=== PATIENT | male | born 1990 | race African-American/Black ===

== ENCOUNTER 2020-01-12 17:11 | Outpatient (CLI) | payer MEDICAID, SELFPAY ==
--- NOTE | ~2020-01-12 | XR_ITS ---
EXAMINATION: XR chest 2V EXAM DATE: 01/12/2020 18:11 INDICATION: Prior chest x-ray showing spot on lung. TECHNIQUE: Frontal and lateral projections of the chest obtained and reviewed. There is no prior april dy for comparison. FINDINGS: The lungs are clear. There are no pleural effusions. The cardiomediastinal silhouette is within normal limits. There is no pneumothorax suspected. The bones and soft tissues are unremarkab le. IMPRESSION: Normal chest x-ray exam. Reviewed, dictated and finalized at location A. OCCUPATIONAL HEALTH IMPRESSION: Normal chest x-ray exam.
== END 2020-01-12 17:12 | disposition home or self-care (01) ==
PROVIDERS: Visit Provider Pediatrics
DX: R76.12 Nonspecific reaction to cell mediated immunity measurement of gamma interferon antigen response without active tuberculosis (principal)
CPT/HCPCS: 71046

== ENCOUNTER 2020-07-22 08:18 | Emergency (ER) | payer BC, SELFPAY ==
[2020-07-22 08:28] VITALS: BP 119/66; PULSE 47; RESP 18; TEMP 36.1; O2SAT 100
--- NOTE | 2020-07-22 09:20 | ED.SKABFB ---
HPI - Skin/Abscess/Foreign Bdy General Chief complaint: Skin/Abscess/Foreign Body Stated complaint: blister lower lip Time Seen by Provider: 07/22/20 08:45 Source: patient Mode of arrival: ambulatory Limitations: no limitations History of Present Illness HPI narrative: This patient is a 30 year old male who presents for evaluation of sores to his right lower lip. Patient states he noticed a sore to his right lower lip yesterday. He notices more swelling around wound today. He reports he has had these sores before when he lived in [place], but he has not sought medical care. He denies nausea, vomiting, fever, or chills. He denies dental issues. Related Data Allergies Allergy/AdvReac Type Severity Reaction Status Date / Time No Known Allergies Allergy Verified 07/22/20 09:54 Review of Systems Review of Systems: All systems reviewed & are unremarkable except as noted in HPI and below PMFSH Past Medical History Medical History (Updated 07/22/20 @ 09:54 by Carly Chisholm MD) Patient denies medical problems Surgical History Surgical History (Updated 07/22/20 @ 09:24 by Carly Chisholm MD) No pertinent past surgical history Social History Social History (Updated 07/22/20 @ 09:25 by Carly Chisholm MD) Smoking status: Current every day smoker Exam Const: General: no acute distress and alert Orientation/consciousness: patient oriented x3 HENMT: Face and sinus: face symmetric Mouth: Yes tongue normal and Yes moist mucous membranes Other: right lower lip at tori border with cluster dried vesicles, no significant lip swelling, no gum swelling or redness. No teeth tenderness Eyes: EOM: EOMs intact bilaterally Neck: Neck: no lymphadenopathy Chest: Chest palpation & inspection: normal inspection of the chest Resp: Effort & Inspection: normal respiratory effort Auscultation: clear to auscultation bilaterally Skin: General skin exam: normal color Rashes: no rashes Neuro: General: patient oriented x3 and moves all extremities Course Reevaluation(s) Date: 07/22/20 Time: 09:47 Vital Signs Vital signs: Vital Signs Temperature 97.0 F L 07/22/20 08:28 Pulse Rate 47 L 07/22/20 08:28 Respiratory Rate 18 07/22/20 08:28 Blood Pressure 119/66 07/22/20 08:28 Pulse Oximetry 100 07/22/20 08:28 Temperature 97.0 F L 07/22/20 08:28 Pulse Rate 47 L 07/22/20 08:28 Respiratory Rate 18 07/22/20 08:28 Blood Pressure 119/66 07/22/20 08:28 Pulse Oximetry 100 07/22/20 08:28 Discharge Plan Discharge Clinical Impression: Herpes labialis Patient Disposition: Home, Self-Care Condition: Stable Instructions: Antibiotic Form, Oral Herpes Simplex Virus Infections (ED) Prescriptions: New valacyclovir [Valtrex] 500 mg tablet 500 mg PO Q12H Qty: 6 RF: 0 mupirocin 2 % ointment 1 applic TOPICAL TID Qty: 15 RF: 0 Follow-up/Referrals: Manuel Yousif MD [Physician] - PHYSICIAN,[employer] [Primary Care Provider] - Discharge Date/Time: 07/22/20 10:17
== END 2020-07-22 10:17 | disposition home or self-care (01) ==
PROVIDERS: Emergency Provider General Practice
DX: B00.1 Herpesviral vesicular dermatitis (principal)
CPT/HCPCS: 99283